=== PATIENT | male | born 1995 | race Caucasian/White ===

== ENCOUNTER 2018-04-30 10:30 | Day surgery (SDC) | payer OTHER ==
[2018-04-28 15:23] VITALS: BMI 21.7
[2018-04-30] MEDS ORDERED: PROPOFOL 20 ML ONE ×4 (12:48→13:36)
[2018-04-30 14:00] VITALS: TEMP 98.2
[2018-04-30 14:53] VITALS: BP 109/64; PULSE 66
--- NOTE | 2018-05-01 15:59 | PATH ---
Surgical Pathology Report Patient Name: MAURA SOLO [facility]. Rec. #: [id number] /Age/Gender: 1995 (Age: 23) / M Account: [id number] Location: [facility] Taken: 04/30/2018 Received: 04/30/2018 Reported: 05/01/2018 Physicians: Janae Sam M.D. Specimen(s) Received A: SECOND PORTION SMALL PIYUSH BIOPSY B: BX ANTRUM C: BX GE JUNCTION Clinical History Postoperative diagnosis: Gastritis Final Diagnosis A. SECOND PORTION SMALL BOWEL, BIOPSY: SMALL INTESTINAL MUCOSA WITH NO DIAGNOSTIC ABNORMALITIES. B. ANTRUM, BIOPSY: GASTRIC MUCOSA WITH MILD CHRONIC INFLAMMATION. IMMUNOSTAIN IS NEGATIVE FOR H. PYLORI ORGANISMS. C. GE JUNCTION, BIOPSY: GASTROESOPHAGEAL MUCOSA WITH MILD CHRONIC INFLAMMATION AND CHANGES CONSISTENT WITH REFLUX ESOPHAGITIS. Electronically Signed Tyson Jensen M.D. Gross Description A. Received in formalin, labeled "second portion of small bowel biopsy" are 2 gray, irregular portions of soft tissue averaging 0.4 cm. in greatest dimension. The specimens are submitted in toto in one cassette. B. Received in formalin, labeled "antrum biopsy" is a gray, irregular portion of soft tissue measuring 0.5 cm. in greatest dimension. The specimen is submitted in toto in one cassette. C. Received in formalin, labeled "GE junction biopsy" is a gray, irregular portion of soft tissue measuring 0.4 cm. in greatest dimension. The specimen is submitted in toto in one cassette. 04/30/2018 saudi04/30/2018
== END 2018-04-30 14:45 | disposition home or self-care (01) ==
LOC: FASU-ENDO 10:30
PROVIDERS: ATTEND Internal Medicine Gastroenterology
PROC: 0DB68ZX Excision of Stomach, Via Natural or Artificial Opening Endoscopic, Diagnostic (ICD-10-PCS; 2018-04-30)
PROC: 0DB58ZX Excision of Esophagus, Via Natural or Artificial Opening Endoscopic, Diagnostic (ICD-10-PCS; 2018-04-30)
PROC: 0DB98ZX Excision of Duodenum, Via Natural or Artificial Opening Endoscopic, Diagnostic (ICD-10-PCS; principal; 2018-04-30 13:35)
DX: K21.9 Gastro-esophageal reflux disease without esophagitis (principal); K31.89 Other diseases of stomach and duodenum; R10.13 Epigastric pain
CPT/HCPCS: 88305-TC; 88342-TC